=== PATIENT | female | born 1970 | race Caucasian/White ===

== ENCOUNTER → 2020-10-07 | Outpatient (CLI) | payer OTHER | END | disposition home or self-care (01) | LOC: LAB SHORT 08:43 | DX: D48.5 Neoplasm of uncertain behavior of skin (principal) | CPT/HCPCS: 88305 ==

== ENCOUNTER 2021-05-12 12:14 | Day surgery (SDC) | payer OTHER ==
[~2021-05-12] VITALS: Ht 162.6 cm; Wt 74.6 kg
[~2021-05-12 12:14] MED LIST: GABA300 PO; PROG100 PO
--- NOTE | 2021-05-12 12:45 | NUR ---
05/12/21 1245 Laisha greenberg 2 ATTEMPTS FOR IV. FIRST ATTEMPT IN R HAND BY RAFI MISSED . SECOND ATTEMPT IN R FOREARM BY RAFI SUCCESSFUL.
--- NOTE | 2021-05-12 13:13 | NUR ---
05/12/21 1313 Alanna Vergara SIMGEOVANNAICONE USED DURING PROCEDURE.
== END 2021-05-12 13:57 | disposition home or self-care (01) ==
LOC: ORSCSDS 12:14
PROVIDERS: Student in an Organized Health Care Education/Training Program
PROC: 0DJD8ZZ Inspection of Lower Intestinal Tract, Via Natural or Artificial Opening Endoscopic (ICD-10-PCS; principal; 2021-05-12 14:00)
DX: K58.1 Irritable bowel syndrome with constipation (principal); R10.31 Right lower quadrant pain; M32.9 Systemic lupus erythematosus, unspecified; F43.10 Post-traumatic stress disorder, unspecified
CPT/HCPCS: J2704; J7120

== ENCOUNTER → 2021-09-08 | Outpatient (CLI) | payer OTHER ==
[2021-09-08 17:46] LABS: Source, Urine Voided
[2021-09-08 18:43] LABS: Bilirubin, Urine Neg (Neg); Blood, Urine 1+ (Neg); Glucose Qualitative, Urine Neg (Neg); Ketones, Urine Neg (Neg); Leukocyte Esterase, Urine Neg (Neg); Nitrite, Urine Neg (Neg); Protein, Urine Neg (Neg); Specific Gravity, Urine 1.015 (1.003-1.022); Urobilinogen, Urine NORM (Normal)
[2021-09-08 19:04] LABS: Appearance, Urine Clear (Clear); Color, Urine Pale Yellow (P-Yellow); Squamous Epithelial Cells Rare /hpf (Few); White Blood Cells, Urine 0-2 /hpf (0-5)
[2021-09-08 19:05] LABS: Bacteria Rare /hpf; Mucus Light (0-Heavy)
== END ==
LOC: LAB SHORT 16:04 → LAB 16:04 → RAD SHORT 16:04
PROVIDERS: Physician Assistant
DX: R31.1 Benign essential microscopic hematuria (principal); R39.15 Urgency of urination
CPT/HCPCS: 81001; 88108

== ENCOUNTER 2021-12-25 10:45 | Day surgery (SDC) | payer OTHER ==
[~2021-12-25] VITALS: Ht 162.6 cm; Wt 78.9 kg
--- NOTE | 2021-12-25 13:24 | NUR ---
12/25/21 1324 EULALIA LUZ FENTANYL 25MCG IV PUSH FOR PAIN 01/03
--- NOTE | 2021-12-25 13:49 | NUR ---
12/25/21 3328 EULALIA LUZ PT SITTING IN RECLINER- EATING AND DRINKING. PAIN 5/10. NORCO WAS GIVEN PO. 2ND DOSE (25MCG) FENTANYL GIVEN NOW. = 50MCG IV PUSH
== END 2021-12-25 14:14 | disposition home or self-care (01) ==
LOC: ORSCSDS 10:45
PROVIDERS: Podiatrist Foot & Ankle Surgery
PROC: 0LQP0ZZ Repair Left Lower Leg Tendon, Open Approach (ICD-10-PCS; principal; 2021-12-25 12:00)
DX: M76.822 Posterior tibial tendinitis, left leg (principal); M79.672 Pain in left foot; M21.42 Flat foot [pes planus] (acquired), left foot
CPT/HCPCS: A9270; J0690; J1100; J2250; J2405; J2704; J3010

== ENCOUNTER 2024-08-16 10:12 | Emergency (ER) | payer OTHER ==
[~2024-08-16] VITALS: Ht 162.6 cm; Wt 71.7 kg
[2024-08-16] MEDS ORDERED: Morphine Sulfate 4 MG/1 ML Injection IV ONE (11:00)
[2024-08-16] MEDS ORDERED: NS 1,000 ML IV SCH (11:00)
[2024-08-16] MEDS ORDERED: Ondansetron HCl 2 MG / ML 2ML Vial IV ONE ×2 (11:00→14:30)
[2024-08-16 11:40] LABS: BASOPHILS ABSOLUTE AUTO 0.03 K/mm3 (0.00-0.23); BASOPHILS PERCENT AUTO 0 % (0-2); EOSINOPHILS ABSOLUTE AUTO 0.11 K/mm3 (0.00-0.68); EOSINOPHILS PERCENT AUTO 1 % (0-6); Hematocrit 37.5 % (33.0-51.0); Hemoglobin 13.1 g/dL (11.5-16.0); IMMATURE GRAN ABSOLUTE AUTO 0.02 K/mm3 (0.00-0.10); IMMATURE GRAN PERCENT AUTO 0 % (0-1); LYMPHOCYTES ABSOLUTE AUTO 2.22 K/mm3 (0.84-5.20); LYMPHOCYTES PERCENT AUTO 21 % (21-46); MONOCYTES ABSOLUTE AUTO 0.57 K/mm3 (0.16-1.47); MONOCYTES PERCENT AUTO 5 % (4-13); Mean Corpuscular HGB Conc 34.9 g/dL (31.5-36.5); Mean Corpuscular Volume 89 fL (80-100); Mean Platelet Volume 9.9 fL (9.1-12.4); NEUTROPHILS ABSOLUTE AUTO 7.71 K/mm3 (1.96-9.15); NEUTROPHILS PERCENT AUTO 72 % (41-73); Platelet Count 283 K/mm3 (150-400); RDW Coefficient Variation 11.7 % (11.7-14.2); RDW Standard Deviation 37.5 fL (35.1-46.3); Red Blood Cell Count 4.22 M/mm3 (3.80-5.20); White Blood Cell Count 10.66 K/mm3 (4.00-11.30)
[2024-08-16 11:57] LABS: Albumin/Globulin Ratio 1.1 (0.8-1.8); Bilirubin, Total 1.2 mg/dL (0.1-1.0); Bun/Creatinine Ratio 8.3 (12.0-20.0); Calcium, Blood 9.1 mg/dL (8.5-10.1); Creatinine, Blood 0.73 mg/dL (0.40-1.00); Globulin, Blood 3.5 g/dL (2.2-4.0); Magnesium, Blood 2.1 mg/dL (1.6-2.4); Potassium, Blood 3.3 mmol/L (3.5-5.5); Total Protein, Blood 7.5 g/dL (6.4-8.2)
[2024-08-16 13:32] LABS: Source, Urine Clean Catch
[2024-08-16 13:38] LABS: Appearance, Urine Clear (Clear); Bilirubin, Urine Neg (Neg); Blood, Urine 1+ (Neg); Glucose Qualitative, Urine Neg (Neg); Ketones, Urine 2+ (Neg); Leukocyte Esterase, Urine Neg (Neg); Nitrite, Urine Neg (Neg); Protein, Urine Neg (Neg); Specific Gravity, Urine 1.005 (1.003-1.022); Urobilinogen, Urine NORM (Normal)
[2024-08-16 13:49] LABS: Color, Urine Pale Yellow (P-Yellow)
[2024-08-16 13:51] LABS: Bacteria Few /hpf; Mucus Light (0-Heavy); Squamous Epithelial Cells Few /hpf (Few); White Blood Cells, Urine 0-2 /hpf (0-5)
[2024-08-16] MEDS ORDERED: HYDROmorphone HCl/Pf 1MG SYR IV ONE (14:15)
[2024-08-16] MEDS ORDERED: OXYACE7.5T PO (14:42)
[2024-08-16] MEDS ORDERED: ACET500 PO (14:42)
[2024-08-16] MEDS ORDERED: IBUP600 PO (14:42)
[2024-08-16] MEDS ORDERED: ONDA4 PO (14:43)
[2024-08-16 15:11] VITALS: BP 105/79
== END 2024-08-16 15:11 | disposition home or self-care (01) ==
LOC: ER 10:12
PROVIDERS: Emergency Medicine
DX: K91.89 Other postprocedural complications and disorders of digestive system (principal); K85.90 Acute pancreatitis without necrosis or infection, unspecified
CPT/HCPCS: 74177; 80053; 81001; 81025; 83690; 83735; 85025; 96374; 96375; 96376; 99284-25; J1171; J2270; J2405; J7030; Q9967

== ENCOUNTER → 2025-02-21 | Outpatient (CLI) | payer OTHER ==
[~2025-02-21] MED LIST changes: +ACET500 PO; +IBUP600 PO; +ONDA4 PO; +OXYACE7.5T PO
== END | disposition home or self-care (01) ==
LOC: LAB SHORT 06:15 → LAB 06:15 → LAB FUT 02-15 16:40
DX: R63.0 Anorexia (principal); R11.0 Nausea; R53.82 Chronic fatigue, unspecified
CPT/HCPCS: 87338